=== PATIENT | male | born 1950 | race Caucasian/White ===

== ENCOUNTER 2021-10-22 13:12 | Emergency (ER) | payer MEDICARE ==
[2021-10-22 14:09] LABS: HEMOGLOBIN 15.9 gm/dl (14.0-17.5); RED BLOOD COUNT 5.07 M/UL (4.20-5.50); WHITE BLOOD COUNT 4.7 K/UL (4.5-11.0)
[2021-10-22 14:32] LABS: BUN/CREATININE RATIO 19 (0-10)
== END 2021-10-22 16:14 | disposition home or self-care (01) ==
LOC: ER1 13:12
PROVIDERS: Nurse Practitioner
DX: U07.1 COVID-19 (principal); E11.9 Type 2 diabetes mellitus without complications
CPT/HCPCS: 0240U; 71045; 80048; 81001; 82550; 82553; 82962; 83874; 84484; 85025; 93005; 99284

== ENCOUNTER 2022-02-24 18:24 | Emergency (ER) | payer MEDICARE | END 2022-02-24 19:43 | disposition left against medical advice (07) | LOC: ER1 18:24 | DX: R53.1 Weakness (principal); R10.9 Unspecified abdominal pain; E11.9 Type 2 diabetes mellitus without complications | CPT/HCPCS: 93005; 99281 ==

== ENCOUNTER 2022-02-25 11:50 | Emergency (ER) | payer MEDICARE ==
[2022-02-25 12:38] LABS: HEMOGLOBIN 15.8 gm/dl (14.0-17.5); RED BLOOD COUNT 4.91 M/UL (4.20-5.50); WHITE BLOOD COUNT 9.5 K/UL (4.5-11.0)
[2022-02-25 12:56] LABS: BUN/CREATININE RATIO 23 (0-10)
== END 2022-02-25 17:10 | disposition home or self-care (01) ==
LOC: ER1 11:50
PROVIDERS: Emergency Medicine
DX: R10.9 Unspecified abdominal pain (principal); R00.2 Palpitations; E11.9 Type 2 diabetes mellitus without complications
CPT/HCPCS: 80053; 81001; 82550; 82553; 83690; 84484; 85025; 93005; 99285; Q9967